=== PATIENT | male | born 1945 | race Caucasian/White ===

== ENCOUNTER → 2017-12-06 | Outpatient (CLI) | payer OTHER, MEDICARE ==
[~2017-12-06] MED LIST: IOPAMIDOL (ISOVUE 370) 100 ML BTL IV ONE
== END ==
LOC: FIMAGING 09:12
PROVIDERS: ATTEND Physician Assistant Medical
DX: I71.2 Thoracic aortic aneurysm, without rupture (principal); J84.10 Pulmonary fibrosis, unspecified; I25.83 Coronary atherosclerosis due to lipid rich plaque
CPT/HCPCS: 71275; Q9967; 82565-PO

== ENCOUNTER 2018-04-19 13:04 | Emergency (ER) | payer OTHER, MEDICARE ==
[2018-04-19] MEDS ORDERED: IPRATROPIUM/ALBUTEROL 3 ML DEYVIAL IH ONE (13:51)
[2018-04-19] MEDS ORDERED: ALBUTEROL 3 ML DEYVIAL IH ONE (13:51)
[2018-04-19] MEDS ORDERED: predniSONE 20 MG TAB PO ONE (13:51)
--- NOTE | 2018-04-19 13:55 | EDPHY ---
H & P Time Seen by Provider: 04/19/18 13:26 HPI/ROS: CHIEF COMPLAINT: Cough and shortness of breath HISTORY OF PRESENT ILLNESS: 73-year-old man is on Eliquis for atrial fibrillation. Recently returned from [place] week ago. About 3 days ago started getting worsening cough with white phlegm and subjective fevers, associated with wheezing and shortness of breath. Little bit worse with exertion. Not associated with chest pain or hemoptysis or leg swelling. No palpitations or syncope. Associated with headache nausea and decreased intake. REVIEW OF SYSTEMS: Eye: no change in vision ENT: no sore throat Cardiac: HPI Pulmonary: HPI Abdomen: no vomiting, diarrhea, abdominal pain Musculoskeletal: no back pain Skin: no rash Neuro: no headache Constitutional: HPI : no urinary symptoms A comprehensive 10 point review of systems is otherwise negative aside from elements mentioned in the history of present illness. PAST MEDICAL HISTORY: Includes atrial fibrillation on Eliquis, hypertension, high cholesterol, aortic aneurysm. He has bicuspid aortic valve and hyperlipidemia. CT scan personally reviewed from 12/06/2017 showed previous pulmonary fibrosis. Social history: Nonsmoker General Appearance: Alert and conversant, cooperative. Eyes: No scleral icterus. ENT, Mouth: Normal mucous membranes. No angioedema. Respiratory: Bilateral expiratory wheezing without rales or rhonchi. Speaks in full sentences. No accessory muscle use. Cardiovascular: Regular rate and rhythm. Gastrointestinal: Abdomen is soft and non tender. Neurological: Alert, face symmetric, normal motor and sensory in extremities. Skin: No urticaria. Musculoskeletal: No peripheral edema. No calf tenderness. Psychiatric: Not agitated. Emergency Department course/MDM: Patient is concerned because his previous symptoms just like this in 2015 resulted in a hospitalization for pneumonia. He did get a flu test this year. He clearly has bronchospasm and an abnormal lung with pulmonary fibrosis at baseline. Plan discussed to test him for influenza 1st and give DuoNeb and prednisone. Steroids discussed and consented. Depending on results of flu test will discharge with azithromycin or Tamiflu. Patient states understanding and agreement with the plan. I think he is clearly stable for outpatient treatment. 1502: Influenza test negative. RSV positive; patient concerned about development of bacterial super infection given his previous presentations in 2015, I feel potential benefit from azithromycin likely outweighs risk at this time given underlying comorbidities present. Smoking Status: Never smoked Constitutional: Initial Vital Signs Temperature (C) 36.7 C 02/07/19 13:10 Heart Rate 58 L 04/19/18 13:10 Respiratory Rate 16 04/19/18 13:10 Blood Pressure 143/88 H 04/19/18 13:10 O2 Sat (%) 96 04/19/18 13:10 O2 Delivery Mode Room Air Allergies/Adverse Reactions: No Known Allergies Allergy (Unverified 04/19/18 13:08) Home Medications: Medication Instructions Recorded Benazepril HCl [Lotensin (*)] 20 mg PO BID 05/05/14 Cholecalciferol Vit D3 [Vitamin D3 2,000 units PO BID 05/05/14 (*)] Nebivolol HCl [Bystolic 5 mg (*)] 10 mg PO DAILY 05/05/14 [place]-3 Fatty Acids [Fish Oil 1000 4,000 mg PO DAILY 05/05/14 mg (*)] Rosuvastatin Calcium [Crestor 40mg 40 mg PO DAILY@1800 05/05/14 (*)] amLODIPine BESYLATE [Norvasc 5 mg 5 mg PO BID 05/05/14 (*)] Albuterol Hfa Anes Only [Proair 2 puffs IH QID 1 Days mdi 04/19/18 Hfa Icu (*)] Azithromycin 250 mg PO AD #6 tablet 04/19/18 Eliquis 04/19/18 Levothyroxine 04/19/18 predniSONE [prednisone 20mg (RX)] 20 mg PO Q12 #10 tab 04/19/18 Medical Decision Making - Diagnostics Imaging Results: Imaging Impressions Chest X-Ray 04/19/18 13:20 Impression: 1. Possibly worsening interstitial lung disease. Consider noncontrast high-resolution chest CT, which could then be compared to prior CT angiography. 2. No evidence for superimposed pneumonia or other lung consolidation. Imaging: I viewed and interpreted images myself - Data Points Laboratory Results: 04/19/18 13:50 Nasal Influenza A PCR NEGATIVE FOR FLU A (NEGATIVE) Nasal Influenza B PCR NEGATIVE FOR FLU B (NEGATIVE) RSV (PCR) RSV DETECTED H (NEGATIVE) Medications Given: Discontinued Medications Albuterol (Proventil Neb) 3 ml IH EDNOW ONE Stop: 04/19/18 13:52 Last Admin: 04/19/18 14:04 Dose: 3 ml Albuterol/Ipratropium (Duoneb) 3 ml IH EDNOW ONE Stop: 04/19/18 13:52 Last Admin: 04/19/18 14:04 Dose: 3 ml Prednisone (Prednisone) 60 mg PO EDNOW ONE Stop: 04/19/18 13:52 Last Admin: 04/19/18 14:03 Dose: 60 mg Departure - Departure Disposition: Home, Routine, Self-Care Clinical Impression: Acute bronchitis Qualifiers: Bronchitis organism: RSV Qualified Code(s): J20.5 - Acute bronchitis due to respiratory syncytial virus Condition: Good Instructions: Acute Bronchitis (ED) Referrals: Norberto [place] MD [Primary Care Provider] - As per Instructions Prescriptions: Albuterol Hfa Anes Only [Proair Hfa Icu (*)] 2 puffs IH QID 1 Days mdi Azithromycin 250 mg PO AD #6 tablet predniSONE [prednisone 20mg (RX)] 20 mg PO Q12 #10 tab
[2018-04-19 15:18] VITALS: BP 117/82
== END 2018-04-19 15:16 | disposition home or self-care (01) ==
DX: J20.5 Acute bronchitis due to respiratory syncytial virus (principal); I48.91 Unspecified atrial fibrillation; Z79.01 Long term (current) use of anticoagulants
CPT/HCPCS: 71046; 99284; J7512; J7613

== ENCOUNTER → 2018-06-25 | Outpatient (CLI) | payer OTHER, MEDICARE | LOC: FCPNEURO 20:00 | PROVIDERS: ATTEND Student in an Organized Health Care Education/Training Program | DX: G47.33 Obstructive sleep apnea (adult) (pediatric) (principal) ==